=== PATIENT | female | born 1955 | race African-American/Black ===

== ENCOUNTER 2016-12-18 21:51 | Emergency (ER) | payer BC ==
[~2016-12-18] VITALS: Ht 167.6 cm; Wt 83.5 kg
--- NOTE | ~2016-12-18 | CR72 ---
[facility] A Service of [facility] & [facility] RADIOLOGY TEXT RESULTS PATIENT: ADIA SNOW LOCATION: [facility] : 59 UNIT #: [id number] AGE: [address]: Jorgito Knowles MD SEX: F ORDER DR: [id number] [facility] [address] [place], [place] [address] [id number] E MR#: [id number] Acc #: [id number] NAME: AIDA SNOW : 1955 SEX: F STUDY DATE/TIME: 12/18/2016 22:45 UNIT: [facility] ROOM: STUDY DESCRIPTION: CR Chest Single View Portable Attending Physician: Jorgito Knowles M.D. Ordering Physician: Jorgito Knowles M.D. MEDICAL IMAGING REPORT This report is preliminary unless electronic signature is present EXAM Portable chest x-ray 12/18/2016 HISTORY Chest pain. 2 days duration. Mild congestion. FINDINGS AP radiograph of the chest is presented. Comparison 11/27/2015. There is no acute bony abnormality. The heart is normal to upper limit of normal in size. Stable. There is a mild increase in vascular prominence. Very subtle linear interstitial markings lower lung zone. Correlate with any clinical indications of mild vascular congestion and borderline interstitial edema. There is no airspace disease, pleural effusion or pneumothorax and no suspicious nodule. Dictated by... Eddie King M.D. THIS IS AN ELECTRONICALLY VERIFIED REPORT Eddie King M.D. at 12/20/2016 4:57 PM CAMPOS/amol TD: 12/19/2016 09:50 JOB #: [id number] MEDICAL IMAGING REPORT Page 1 of 1 COPY
--- NOTE | ~2016-12-18 | EKG ---
PATIENT: ADIA SNOW UNIT #: [id number] Ventricular Rate: 104 BPM Atrial Rate: 104 BPM P-R Interval: 136 ms QRS Duration: 80 ms Q-T Interval: 328 ms QTC Calculation(Bezet): 431 ms P [place]: 76 degrees Calculated R [place]: 60 degrees Calculated T [place]: 29 degrees Diagnosis Line: Sinus tachycardia Diagnosis Line: Possible Left atrial enlargement Diagnosis Line: Nonspecific ST and T wave abnormality Diagnosis Line: Abnormal ECG Diagnosis Line: No previous ECGs available Diagnosis Line: Confirmed by ROSARIO PATEL MD ([id number]) on Diagnosis Line: 12/19/2016 8:43:12 AM INTERPRETING MD: JORGE YOST
[2016-12-19 00:15] LABS: POC - CKMB 1.3 ng/mL (0.0-7.9); POC - TROPONIN <0.05 ng/mL (<=0.05)
[2016-12-19 00:55] LABS: BASOPHIL% 0.6 % (0-2.5); EOSINOPHIL% 0.3 % (0.0-7.0); HEMATOCRIT 36.7 % (35.0-45.0); HEMOGLOBIN 12.3 gm/dL (12.0-16.0); LYMPHOCYTE# 2.3 X10e3 (1.0-3.5); LYMPHOCYTE% 33.3 % (17.0-45.0); MEAN CELL VOLUME 87.5 FL (83-96); MEAN CORPUSCULAR HEMOGLOBIN 29.3 PG (28-34); MEAN CORPUSCULAR HGB CONC 33.5 g/dL (30-36); MEAN PLATELET VOLUME 8.9 FL (6.5-11.5); MONOCYTE# 0.5 X10e3 (0-1.0); MONOCYTE% 7.8 % (3.0-12.0); NEUTROPHIL# 4.1 X10e3 (1.5-7.1); PLATELET COUNT 239 X10e3 (140-420); RED CELL DISTRIBUTION WIDTH 13.1 % (11.0-15.5)
[2016-12-19 01:02] LABS: DIFF IND NO
[2016-12-19 01:21] LABS: ALBUMIN SERUM 3.7 g/dL (3.5-5.0); BILIRUBIN, DIRECT 0.1 mg/dL (0.0-0.2); BILIRUBIN,INDIRECT 0.1 mg/dL (0.0-0.9); BILIRUBIN,TOTAL 0.2 mg/dL (0.2-2.0); CALCIUM SERUM 8.9 mg/dL (8.4-10.2); CREATININE SERUM 1.2 mg/dL (0.6-1.4); GLOM FILT RATE Estimated 57.3 mL/min (>60); POTASSIUM 3.5 mmol/L (3.5-5.1); PROTEIN TOTAL SERUM 6.8 g/dL (6.0-8.3)
== END 2016-12-19 02:00 | disposition home or self-care (01) ==
LOC: CED 21:51
PROVIDERS: Emergency Medicine
DX: R07.89 Other chest pain (principal); I10 Essential (primary) hypertension
CPT/HCPCS: 36415; 71010; 80048; 80076; 82553; 83690; 84484; 85025; 93005; 99285